=== PATIENT | male | born 1975 | race Caucasian/White ===

== ENCOUNTER 2019-04-10 22:46 | Emergency (ER) | payer SELFPAY ==
[~2019-04-10] VITALS: Ht 177.8 cm; Wt 73.5 kg
[2019-04-10 22:57] VITALS: BP 131/93
[2019-04-10] MEDS ORDERED: HYDROcodone/APAP 5/325 TABLET ONE (23:14)
[2019-04-10] MEDS ORDERED: HYDROcodone/APAP 5/325 TABLET PO ONE (23:30)
--- NOTE | 2019-04-10 23:49 | NUR ---
DC EDUCATION PROVIDED, PT DEMONSTRATES UNDERSTANDING. PT AMBULATED STEADILY TO DC WITH RN. PT TO TAKE TAXI HOME.
== END 2019-04-10 23:51 | disposition home or self-care (01) ==
LOC: ED 23:15
DX: S42.031A Displaced fracture of lateral end of right clavicle, initial encounter for closed fracture (principal); G40.909 Epilepsy, unspecified, not intractable, without status epilepticus; W01.0XXA Fall on same level from slipping, tripping and stumbling without subsequent striking against object, initial encounter; Y93.89 Activity, other specified; Y92.091 Bathroom in other non-institutional residence as the place of occurrence of the external cause; Y99.8 Other external cause status
CPT/HCPCS: 99283

== ENCOUNTER 2019-10-16 12:58 | Emergency (ER) | payer SELFPAY ==
[~2019-10-16] VITALS: Ht 177.8 cm; Wt 76.2 kg
[2019-10-16 13:22] LABS: BASOPHILS # (AUTO) 0.02 x10^3/uL (0-0.1); BASOPHILS % (AUTO) 0 % (0-1); EOSINOPHILS # (AUTO) 0.19 x10^3/uL (0-0.4); EOSINOPHILS % (AUTO) 3 % (1-7); LYMPHOCYTES # (AUTO) 1.64 x10^3/uL (1-3.4); LYMPHOCYTES % (AUTO) 29 % (22-44); MD NO; MEAN CORPUSCULAR HEMOGLOBIN 33.1 pg (27.5-34.5); MEAN CORPUSCULAR HGB CONC 34.2 g/dL (33.2-36.2); MEAN CORPUSCULAR VOLUME 96.8 fL (81-97); MONOCYTES % (AUTO) 11 % (2-9); NEUTROPHILS # (AUTO) 3.25 x10^3/uL (1.8-6.8); NEUTROPHILS % (AUTO) 57 % (42-75); PLATELET COUNT 300 x10^3/uL (130-400); RED BLOOD COUNT 5.42 x10^6/uL (4.38-5.82); RED CELL DISTRIBUTION WIDTH 11.9 % (9.4-14.8)
--- NOTE | 2019-10-16 13:29 | NUR ---
FROM LOBBY TO ROOM AT THIS TIME WITH STEADY GAIT.
[2019-10-16 13:34] LABS: ALBUMIN 4.4 g/dL (3.4-5.0); ANION GAP 4 mmol/L (5-15); CALCIUM 8.9 mg/dL (8.5-10.1); CHLORIDE 109 mmol/L (98-107); CREATININE 0.86 mg/dL (0.7-1.3)
[2019-10-16 13:40] VITALS: BP 146/105
--- NOTE | 2019-10-16 13:46 | NUR ---
PT PRESENTS TO ED WITH C/O UNWITNESSED SEIZURE. PT STATES HE HAS HX EPILEPSY, BUT DOES NOT TAKE MEDS, STATES "I MAXED OUT ON DEPAKOTE A LONG TIME AGO", STATES HE USES [place] TO CONTROL SEIZURES. PT DRINKS SEVERAL BEERS DAILY, LAST USE YESTERDAY. NO TREMORS NOTED. PT IS A&O, RESPS EVEN AND UNLABORED, NSR ON SKI EDGE PAINTER WITH NO ECTOPY. NEURO INTACT. PT DENIES PAIN THAT IS NOT CHRONIC D/T WORK RELATED INJURIES. PT DENIES ANY INJURY WITH SEIZURE. SEIZURE PRECAUTIONS IN PLACE, ALL MONITORS IN PLACE. PT INSTRUCTED TO PROVIDE URINE SAMPLE, URINAL AT BEDSIDE. FRIEND AT BEDSIDE.
--- NOTE | 2019-10-16 14:20 | NUR ---
pt sleeping on gurney, resps even and unlabored, nsr on monitor and storage bin tender with no ectopy. awaiting urine sample, and further orders at this time.
--- NOTE | 2019-10-16 14:35 | NUR ---
SPECTACLE TRUER: PT STATES "NOBODY IS HELPING ME. THEY SAID I'M GOING TO GET A PRESCRIPTION AND NOBODY IS HELPING ME. I'M JUST LEAVING. I DON'T HAVE TO SIGN AN AMA FORM EITHER. I'M JUST LEAVING." THIS RN ASKED PT IF HE WANTED TO STAY THAT I WAS JUST NOW BEING TOLD ABOUT THE SITUATION. PT STATES "YOU'RE PROBABLY JUST NOW BEING TOLD BECAUSE I RIPPED ALL THE THINGS OUT OF MY ARM AND GOT DRESSED. I KNOW WHERE THE DOOR IS. THAT IS WHY I GOT DRESSED." PT WAS AMBULATORY WITH STEADY GAIT AND A&OX4. WITH PATIENT. PT CONTINUED TO REFUSE TO SPEAK WITH A DR OR GO BACK TO ROOM.
--- NOTE | 2019-10-16 14:49 | NUR ---
PT REQUESTING TO LEAVE AMA, NO PIV IN PLACE AT TIME OF DC. PT EDUCATED REGARDING RISKS OF LEAVING AMA, PT REFUSES TO SIGN AMA PAPERWORK. PT IS A&OX4, RESPS EVEN AND UNLABORED, GAIT STEADY. NO SEIZURE ACTIVITY NOTED DURING THIS VISIT. PT AMB TO EXIT WITH STEADY GAIT ACCOMPANIED BY WHO IS TO DRIVE PT HOME.
== END 2019-10-16 14:50 | disposition left against medical advice (07) ==
LOC: ED 14:40
DX: R56.9 Unspecified convulsions (principal); R11.2 Nausea with vomiting, unspecified
CPT/HCPCS: 36415; 80048; 80307; 82040; 85025; 93005; 99284